=== PATIENT | female | born 1990 ===

== ENCOUNTER 2019-02-24 16:37 | Inpatient (IN) | payer OTHER ==
[~2019-02-24] VITALS: Ht 165.1 cm; Wt 63.0 kg
--- NOTE | 2019-02-24 17:16 | NUR ---
IN ROOM HELPING GET SET UP FOR DELIVERY. NB MEDICATIONS AND 24 HOUR TESTS EXPLAINED TO PT AND NB FATHER, CORINA. AT THIS TIME HE DID NOT WANT TO SIGN A CONSENT OR REFUSAL UNTIL HE COULD SPEAK WITH ASTER FURTHER. WHEN Kunal LACEY CNM IN ROOM, SHE WAS ASKING ABOUT HISTORY. REQUESTED IF MOTHERS' BLOOD TYPE WAS KNOWN. CORINA STATED IT WAS KNOWN ON RECORD AT HOME. LENNIE REQUESTED IF THE RECORDS COULD BE BROUGHT IN TO SEE. HE STATED, "WE LIKE TO KEEP THINGS LIKE THAT OFF THE RECORD". LENNIE STATED, "WELL WE WILL SEE WHAT BABY'S BLOOD TYPE IS WHEN BORN". CORINA STATED, "YES, WE CAN CHANGE THAT IF WE DON'T LIKE THE BLOOD TYPE". LENNIE STATED, "BLOOD TYPE IS LIKE GENDER, YOU ARE BORN A MALE OR FEMALE. BLOOD TYPE YOU ARE BORN WITH AND THAT IS WHAT YOU GET". CORINA STATED, "WELL THERE ARE A LOT OF HERBS OUT THERE YOU CAN GIVE THE BABY TO MESS WITH THE IRON."
--- NOTE | 2019-02-24 19:05 | NUR ---
PT DOES NOT HAVE IV IN LABOR DUE TO PT REFUSAL. METHERGINE AND IM PIT AT BEDSIDE
[2019-02-25 05:49] LABS: BASOPHILS ABSOLUTE AUTO 0.04 K/mm3 (0.00-0.23); BASOPHILS PERCENT AUTO 0 % (0-2); EOSINOPHILS ABSOLUTE AUTO 0.06 K/mm3 (0.00-0.68); EOSINOPHILS PERCENT AUTO 0 % (0-6); Hematocrit 34.4 % (33.0-51.0); Hemoglobin 11.5 g/dL (11.5-16.0); IMMATURE GRAN ABSOLUTE AUTO 0.18 K/mm3 (0.00-0.10); IMMATURE GRAN PERCENT AUTO 1 % (0-1); LYMPHOCYTES ABSOLUTE AUTO 3.08 K/mm3 (0.84-5.20); LYMPHOCYTES PERCENT AUTO 13 % (21-46); MONOCYTES ABSOLUTE AUTO 1.61 K/mm3 (0.16-1.47); MONOCYTES PERCENT AUTO 7 % (4-13); Mean Corpuscular HGB 30.8 pg (26.0-34.0); Mean Corpuscular HGB Conc 33.4 g/dL (31.5-36.5); Mean Corpuscular Volume 92 fL (80-100); NEUTROPHILS ABSOLUTE AUTO 18.43 K/mm3 (1.96-9.15); NEUTROPHILS PERCENT AUTO 79 % (41-73); Platelet Count 326 K/mm3 (150-400); RDW Coefficient Variation 15.3 % (11.7-14.2); RDW Standard Deviation 51.3 fL (35.1-46.3); Red Blood Cell Count 3.73 M/mm3 (3.80-5.20)
--- NOTE | 2019-02-25 06:19 | NUR ---
THROUGH OUT NIGHT, PARENTS WERE ATTENDING TO NB'S NEEDS. PT BREAST FED NB WELL WITH MINIMAL ASSISTANCE. PT ASKED RN TO SHOW HER HOW TO BURP AND QUESTIONS REGARDING BURPING NBS AFTER FEEDS. PARENTS ACTED APPROPRIATLEY TOWARDS HOSPITAL STAFF DURING NOC SHIFT.
--- NOTE | 2019-02-25 14:24 | NUR ---
SEE NOTES IN NB CHART
--- NOTE | 2019-02-25 19:30 | NUR ---
PT DISCHARGED HOME WITH SO AND NB. NO ACUTE DISTRESS NOTED. DISCHARGE INSTRUCTIONS REVIEWED WITH PT AND SO, BOTH VERBALIZED UNDERSTANDING AND DENY ANY FURTHER QUESTIONS OR CONCERNS. BANDS MATCHED. PRESCRIPTION FOR IBUPROFEN GIVEN TO PT. PT DECLINED MMR, BLOOD TYPING FOR RHOGAM AND MATERNAL SCREENING, PT DECLINED PT PORTAL, FOLLOW UP APPOINTMENT AND CORE REFERAL. RN EXPLAINED EACHED ITEM AND WHY WE ENCOURAGE THEM.
[2019-03-01 05:09] LABS: HIV SCREEN 4TH GENERATION WRFX Non Reactive (Non Reactive)
== END 2019-02-25 19:15 | disposition home or self-care (01) | DRG 807 ==
LOC: BC 16:37
PROVIDERS: Nurse Practitioner Obstetrics & Gynecology; ADMIT Obstetrics & Gynecology
PROC: 10E0XZZ Delivery of Products of Conception, External Approach (ICD-10-PCS; principal; 2019-02-25)
DX: O80 Encounter for full-term uncomplicated delivery (principal); Z37.0 Single live birth; Z3A.38 38 weeks gestation of pregnancy
CPT/HCPCS: 36415; 85025; 86317; 86592; 86762; 86900; 86901; 87389; J2210; J2590; J7120